=== PATIENT | female | born 1950 | race Caucasian/White ===

== ENCOUNTER 2017-03-12 19:21 | Emergency (ER) | payer MEDICARE, BC, OTHER ==
[~2017-03-12] VITALS: Ht 162.6 cm; Wt 78.6 kg
[~2017-03-12 19:21] MED LIST: ADVA115INH INH; ALPR0.5T3 PO; CALCCHW19 PO; MULTCAP11 PO; PERC5TAB PO; VENTAER INH; WELLTAB4 PO
[2017-03-12 19:22] VITALS: BP 173/83
[2017-03-12] MEDS ORDERED: POTA99TA PO (19:35)
[2017-03-12] MEDS ORDERED: LOSA25TA8 (19:35)
[2017-03-12 21:45] LABS: BASO % 0.6 % (0.0-1.0); EOS # 0.2 K/mm3 (0.0-0.50); EOS % 2.1 % (0.0-3.0); LARGE UNSTAINED CELL # 0.2 K/mm3 (0.0-0.4); LYMPH # 1.2 K/mm3 (1.5-4.5); LYMPH % 13.5 % (24.0-44.0); MEAN CORPUSCULAR HGB CONC 35.2 g/dl (32.0-36.5); MONO # 0.4 K/mm3 (0.0-0.8); MONO % 4.1 % (0.0-5.0); NEUTROPHILS % 77.7 % (36.0-66.0); PLATELET COUNT, AUTOMATED 253 k/mm3 (150-450); RED CELL DISTRIBUTION WIDTH 13.3 % (11.5-14.5)
[2017-03-12 21:53] LABS: INR 0.9
[2017-03-12 22:07] LABS: ANION GAP 7 MEQ/L (8-16); BLOOD UREA NITROGEN 24 MG/DL (7-18); CALCIUM LEVEL 9.2 MG/DL (8.8-10.2); CARBON DIOXIDE LEVEL 25 MEQ/L (21-32); CHLORIDE LEVEL 109 MEQ/L (98-107); CREATININE FOR GFR 0.79 MG/DL (0.55-1.02); FREE T4 0.92 NG/DL (0.76-1.46); GLOMERULAR FILTRATION RATE > 60.0 (>45); GLUCOSE, FASTING 97 MG/DL (80-110); POTASSIUM SERUM 3.9 MEQ/L (3.5-5.1); SODIUM LEVEL 141 MEQ/L (136-145)
--- NOTE | 2017-03-13 | REPUSA ---
MRI of the brain. Clinical history: vertigo. Technique: Multiecho multiplanar MRI images of the brain were obtained without administration of cont rast. Diffusion weighted images with ADC mapping was also obtained. Findings: The ventricles and sulci are symmetric bilaterally. The brain parenchyma demonstrates uniform and nor mal signal on all sequences. There is no midline shift, mass effect, or extra-axial fluid collection. The midline intracranial structures do not demonstrate any gross abnormalities. The cervical cranial junction is intact. The orbits are unremarkable. The visualized paranasal sinuses and mastoid air ce lls are clear. The osseous structures and superficial soft tissues are unremarkable. The vascular str uctures demonstrate appropriate flow voids. Impression: Normal MRI of the Brain.
[2017-03-13] MEDS ORDERED: MECL12.575 PO (00:06)
--- NOTE | 2017-03-13 08:33 | ECGEPIP ---
Stationary ECG Study [facility] - ED Test Date: 2017-03-12 Pat Name: COLE GUILLAUME Department: Room: - Gender: F Multimedia Author: nel : 1950 Requested By: NOY OHARA Order Number: [id number] Reading MD: Karla Garay Measurements Intervals [place] Rate: 66 P: 50 MI: 154 QRS: 0 QRSD: 89 T: 1 QT: 398 QTc: 419 Interpretive Statements SINUS RHYTHM POSSIBLE RIGHT VENTRICULAR CONDUCTION DELAY MODERATE VOLTAGE CRITERIA FOR LVH, CONSIDER NORMAL VARIANT ?PRIOR INFERIOR INFARCT Electronically Signed On 03-13-2017 8:32:42 EDT by Karla Garay
== END 2017-03-13 01:38 | disposition home or self-care (01) ==
LOC: M ED 19:21
DX: H81.49 Vertigo of central origin, unspecified ear (principal); Z79.899 Other long term (current) drug therapy; Z88.5 Allergy status to narcotic agent; Z88.0 Allergy status to penicillin; Z88.1 Allergy status to other antibiotic agents; Z87.891 Personal history of nicotine dependence; Z85.118 Personal history of other malignant neoplasm of bronchus and lung

== ENCOUNTER → 2018-04-02 | Outpatient (REF) | payer MEDICARE, OTHER ==
[2018-04-02 18:33] LABS: INR 0.87; PROTHROMBIN TIME 11.9 SECONDS (12.1-14.4)
[2018-04-02 18:34] LABS: PARTIAL THROMBOPLASTIN TIME 33.5 SECONDS (25.4-37.6)
[2018-04-02 18:37] LABS: PLATELET COUNT, AUTOMATED 287 10^3/uL (150-450)
== END ==
LOC: M LAB REF 17:02
DX: R91.1 Solitary pulmonary nodule (principal)
CPT/HCPCS: 85049

== ENCOUNTER → 2018-04-07 | Outpatient (CLI) | payer MEDICARE, BC, OTHER | LOC: M CARPUL 06:22 | DX: R91.1 Solitary pulmonary nodule (principal) | CPT/HCPCS: 94060 ==

== ENCOUNTER 2018-04-09 05:51 | Day surgery (SDC) | payer MEDICARE, BC, OTHER ==
[2018-04-09] MEDS ORDERED: LR 1,000 ML IV ×6 (06:00→09:00)
[2018-04-09] MEDS ORDERED: PROPOFOL 200 MG/20 ML VIAL As Ordered ×2 (07:16)
[2018-04-09] MEDS ORDERED: dexameTHASONE 4 MG/ML 1ML VIAL (J1100) As Ordered ×2 (07:16)
[2018-04-09] MEDS ORDERED: ROCURONIUM BROMIDE 50 MG/5 ML VIAL As Ordered ×2 (07:16)
[2018-04-09] MEDS ORDERED: fentaNYL 100 MCG/2 ML INJECTION (J3010) As Ordered ×2 (07:16)
[2018-04-09] MEDS ORDERED: LIDOCAINE 2% INJ 100 MG/5 ML SDV (FOR ANES.) As Ordered ×2 (07:16)
[2018-04-09] MEDS ORDERED: ONDANSETRON 4MG/2ML VIAL (J2405) As Ordered ×2 (07:16)
[2018-04-09] MEDS ORDERED: MIDAZOLAM INJ 2 MG/2 ML VIAL (J2250) As Ordered ×4 (07:17→07:21)
[2018-04-09] MEDS: CETACAINE SPRAY 5GM As Ordered ×2 (08:00)
[2018-04-09] MEDS ORDERED: ePHEDrine SULFATE 25 MG/5 ML(5MG/ML) SYRINGE As Ordered ×2 (08:07)
[2018-04-09] MEDS ORDERED: fentaNYL 100 MCG/2 ML INJECTION (J3010) IV ×2 (09:00)
[2018-04-09] MEDS ORDERED: ONDANSETRON 4MG/2ML VIAL (J2405) IV ×2 (09:00)
[2018-04-09] MEDS ORDERED: PERCOCET 5MG/325MG TAB PO ×2 (09:00)
[2018-04-09] MEDS: LIDOCAINE VISCOUS 2% SOLN 15ML UDC As Ordered ×2 (09:01)
[2018-04-09] MEDS: EPINEPHrine 1MG/10ML SYRINGE 1.5IN As Ordered ×2 (09:01)
[2018-04-09] MEDS: THROMBIN SOLN 5,000 UNITS VIAL As Ordered ×2 (09:02)
[2018-04-09] MEDS: LIDOCAINE 1% SDV INJ 30 ML VIAL As Ordered ×2 (09:02)
[2018-04-09] MEDS: LIDOCAINE 4% TOPICAL SOLN 50 ML BTL As Ordered ×2 (09:02)
== END 2018-04-09 10:10 | disposition home or self-care (01) ==
LOC: M SDC 05:51
DX: C34.12 Malignant neoplasm of upper lobe, left bronchus or lung (principal); J44.9 Chronic obstructive pulmonary disease, unspecified; Z90.2 Acquired absence of lung [part of]; Z88.0 Allergy status to penicillin; Z85.118 Personal history of other malignant neoplasm of bronchus and lung; F41.0 Panic disorder [episodic paroxysmal anxiety]; I10 Essential (primary) hypertension; Z87.891 Personal history of nicotine dependence; Z88.8 Allergy status to other drugs, medicaments and biological substances
CPT/HCPCS: 31629

== ENCOUNTER → 2018-05-04 | Outpatient (CLI) | payer MEDICARE, BC, OTHER ==
[~2018-05-04] MED LIST changes: -ADVA115INH INH; -ALPR0.5T3 PO; -CALCCHW19 PO; -MULTCAP11 PO; -PERC5TAB PO; +PROHANCE 279.3MG/ML 15ML VIAL (A9576) As Ordered; -VENTAER INH; -WELLTAB4 PO
== END ==
LOC: M RAD 09:12
DX: C34.92 Malignant neoplasm of unspecified part of left bronchus or lung (principal); I67.82 Cerebral ischemia
CPT/HCPCS: A9576

== ENCOUNTER → 2018-05-08 | Outpatient (CLI) | payer MEDICARE, BC, OTHER | LOC: M ONCR 08:34 | DX: C7A.090 Malignant carcinoid tumor of the bronchus and lung (principal) | CPT/HCPCS: G0463 ==

== ENCOUNTER → 2018-05-25 | Outpatient (CLI) | payer MEDICARE, BC, OTHER | LOC: M RAD 08:35 | DX: C7A.8 Other malignant neuroendocrine tumors (principal) | CPT/HCPCS: 78804 ==

== ENCOUNTER → 2018-07-07 | Outpatient (CLI) | payer MEDICARE, BC, OTHER ==
[~2018-07-07] MED LIST changes: +ADVA115A INH; +ADVA115INH INH; +ALPR0.5T3 PO; +ALPRTAB4 PO; +AZIT500T2 PO; +BUPR150T3 PO; +CALCCHW19 PO; +CALCTAB89 PO; +CETI10TA PO; +D32000CA PO; +LOSA25TA14 PO; +MECL12.575 PO; +MONT10TA2 PO; +MULTCAP PO; +MULTCAP11 PO; +ONDA-195 PO; +ONDA8TAB8 PO; +PERC5TAB PO; +POTA99TA PO; +PROC10TA4 PO; -PROHANCE 279.3MG/ML 15ML VIAL (A9576) As Ordered; +VENTAER INH; +WELLTAB4 PO; +ZOFR8TAB22 PO
--- NOTE | 2018-07-08 19:42 | REP ---
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 Comparisons: Comparison PET-CT study April 30, 2018. TECHNIQUE: 46 minutes following the intravenous injection of a 9.6 mCi dose of F-18 FDG, three-dimensional PET scintigraphy is acquired from the skull base to the proximal thighs. Triplanar noncontrast CT scanning is acquired through the same anatomic range for attenuation correction, and image registration with scan parameters optimized to minimize radiation exposure to the patient. PET scintigraphy and CT datasets were fused and displayed on a workstation with multiplanar and projection display capability. PET/CT Findings: There is diffuse bone marrow uptake throughout the axial skeleton consistent with rebound marrow post chemo therapy. The uptake is not focal. There is some residual hypermetabolic uptake in the lingular nodule seen at the left lung base. This appears decreased in avidity and decreased somewhat in size from 14 mm on the April 30, 2018 prior PET-CT to 12 mm today. Maximum standard uptake value today is 4.7. The previously noted AP window region mediastinal lymph node focus is resolved. There is a subtle zone of parenchymal FDG uptake in the left upper lobe suprahilar region with maximum standard uptake value 2.2. No nodule is seen here and the significance of this is uncertain. Head and neck soft tissues show no abnormal maryse uptake. In the abdomen and pelvis, there is no abnormal hypermetabolic uptake in the adrenal. Gallstones are noted. Normal hepatic uptake is seen. There is a solid mass in the lower pole of the left kidney again noted measuring 4.7 x 5.0 cm in transverse dimension. This appears to be unchanged from the PET-CT study dated April 30, 2018. This shows slightly heterogeneous hypermetabolic uptake with maximum standard uptake value 4.4. No other renal mass lesion is seen. This may be a primary renal cell carcinoma or conceivably a metastatic focus although it is much less hypermetabolic than the primary lung focus. Study is otherwise unremarkable. Impression: 1. Improvement noted in the intrathoracic disease as above. 2. Reactive rebound marrow changes. 3. Mildly hypermetabolic 5 cm mass lower pole left kidney, uncertain significance, unchanged from April 30, 2018. This may be a primary or secondary renal malignancy. Electronically Signed by Salo Potter MD 07/08/2018 07:49 P
== END ==
LOC: M PLARAD 13:41
PROVIDERS: ATTEND Internal Medicine Hematology & Oncology
DX: C34.32 Malignant neoplasm of lower lobe, left bronchus or lung (principal); Z92.21 Personal history of antineoplastic chemotherapy; K80.20 Calculus of gallbladder without cholecystitis without obstruction; N28.89 Other specified disorders of kidney and ureter
CPT/HCPCS: 78815; A9552

== ENCOUNTER → 2018-07-24 | Outpatient (CLI) | payer MEDICARE, BC, OTHER ==
--- NOTE | 2018-07-24 13:37 | REP ---
RENAL ULTRASOUND: Real-time sonographic evaluation of the kidneys performed. Kidneys are normal in size and echotexture, right kidney measuring 10.4 x 5.6 x 5.2 cm and left kidney 11.3 x 5.5 x 6.5 cm. There is no hydronephrosis bilaterally. Solid mass is seen in the lower pole of the left kidney 6.1 x 5.5 x 6.0 cm. This corresponds with the finding on the PET/CT of 07/07/2018. Incidental note is made of multiple gallstones in the gallbladder. Urinary bladder is not well distended and not well evaluated. IMPRESSION: Solid mass lower pole left kidney measuring 6.1 cm in maximum diameter. Incidental note made of multiple gallstones in the gallbladder. Electronically Signed by Jarrett Fields MD 07/24/2018 01:57 P
== END ==
LOC: M RAD 12:02
PROVIDERS: ATTEND Internal Medicine Hematology & Oncology
DX: D41.02 Neoplasm of uncertain behavior of left kidney (principal); K80.80 Other cholelithiasis without obstruction

== ENCOUNTER → 2018-10-21 | Outpatient (CLI) | payer MEDICARE, BC, OTHER ==
[~2018-10-21] MED LIST changes: +VOLT1GEL15 TD
--- NOTE | 2018-10-23 09:41 | REP ---
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 Status post chemotherapy. Comparisons: Comparison PET-CT a July 07, 2018, and April 30, 2018 . TECHNIQUE: 55 minutes following the intravenous injection of a 8.30 mCi dose of F-18 FDG, three-dimensional PET scintigraphy is acquired from the skull base to the proximal thighs. Triplanar noncontrast CT scanning is acquired through the same anatomic range for attenuation correction, and image registration with scan parameters optimized to minimize radiation exposure to the patient. PET scintigraphy and CT datasets were fused and displayed on a workstation with multiplanar and projection display capability. PET/CT Findings: The previously noted lingular nodule has increased its avidity from 4.7 SUV on July 07, 2018 to 13.6 today. It measures 13 mm in greatest diameter. No other abnormal pulmonary parenchymal hypermetabolic uptake is seen. There is a focus of mildly hypermetabolic uptake in the left inferior hilus with maximum standard uptake value 4.22. No abnormal mediastinal uptake is seen. In the abdomen and pelvis, the previously noted mildly hypermetabolic left renal mass is again seen with dimensions of 5.2 x 4.9 cm today, previously 5.0 x 4.7 cm. Maximum standard uptake value within this left renal mass is 5.00, previously 4.4. No other abnormal hypermetabolic uptake is seen in the abdomen or pelvis. No abnormal adrenal uptake is seen. The previously noted marrow uptake pattern has resolved. Gallstones are again noted as an incidental finding. Impression: Interval increase in the avidity of the lingular nodule. Subtle left hilar uptake. Left renal mass persists, perhaps slightly larger, showing low level hypermetabolic uptake. Electronically Signed by Salo Potter MD 10/23/2018 10:40 A
== END ==
LOC: M PLARAD 07:29
PROVIDERS: ATTEND Internal Medicine Hematology & Oncology
DX: C34.12 Malignant neoplasm of upper lobe, left bronchus or lung (principal)
CPT/HCPCS: 78815; A9552

== ENCOUNTER → 2018-12-17 | Outpatient (CLI) | payer MEDICARE, BC, OTHER ==
[~2018-12-17] MED LIST changes: +LIDOCAINE 1% MDV 20ML VIAL As Ordered ONE; +TYLE650T35 PO
--- NOTE | 2018-12-17 13:06 | REP ---
Chest x-ray: Single view. History: Post biopsy assessment. The patient is status post CT guided needle biopsy left upper lobe lung nodule. A tiny pneumothorax is observed on CT imaging obtained during the biopsy. Comparison study: April 09, 2019. Findings: There is no visible pneumothorax on PA chest radiograph. Oxygen delivery tubing is seen. The nodular density which was the target of the biopsy is seen. There are post thoracotomy changes on the left. Impression: No pneumothorax or other complication visible. Electronically Signed by Salo Potter MD 12/17/2018 02:24 P
--- NOTE | 2018-12-17 14:40 | REP ---
CHEST X-RAY: Single view. 02:15 p.m. film. HISTORY: Tiny post biopsy pneumothorax followup. Comparison radiograph is from 12:21 p.m. on the same date. FINDINGS: There is no visible pneumothorax. Post thoracotomy changes on the left and nodular density on the left again seen unchanged. IMPRESSION: No pneumothorax seen. Electronically Signed by Salo Potter MD 12/17/2018 03:45 P
--- NOTE | 2018-12-17 16:53 | REP ---
CT-guided left upper lobe lung biopsy The procedure is performed by JOLIE Arnold, under the personal supervision of Dr. Potter. The patient has a history of a lingular nodule in the left lung with increase uptake on a PET CT dated 10/21/2018. The risks and benefits of the procedure were explained to the patient and informed consent was obtained both orally and written. Directly prior to the start of the procedure, a formal timeout was done in the exam room. The left upper lung nodule was localized using CT guidance. Skin was prepped and draped in the usual sterile fashion. 6 ml of 1% lidocaine was used as a local anesthetic. Using CT guidance a 19/20 gauge coaxial needle biopsy system was inserted and advanced into the nodule. 4 core biopsy samples were obtained and sent to the lab. CT images obtained directly after the biopsy show evidence of a small pneumothorax. After the appropriate amount of monitored convalescence, and a series of chest x-rays the pneumothorax did not progress, and in the patient was discharged from the department. Reviewed by JOLIE Still 12/17/2018 03:48 P Electronically Signed by Salo Potter MD 12/17/2018 04:44 P
== END ==
LOC: M RADPRO 09:56
PROVIDERS: ATTEND Internal Medicine Hematology & Oncology
DX: C34.32 Malignant neoplasm of lower lobe, left bronchus or lung (principal)

== ENCOUNTER → 2019-06-04 | Outpatient (CLI) | payer MEDICARE, BC, OTHER ==
[~2019-06-04] MED LIST changes: -AZIT500T2 PO; +AZIT500T5 PO; +LIDO2.5C15 TOP; +MIDAZOLAM INJ 2 MG/2 ML VIAL (J2250) As Ordered ONE; +VANCOMYCIN HCL 500 MG/10 ML VIAL (J3370) As Ordered ONE; +diphenhydrAMINE INJ 50MG/ML VIAL (J1200) As Ordered ONE; +fentaNYL 100 MCG/2 ML INJECTION (J3010) As Ordered ONE
--- NOTE | 2019-06-04 12:37 | REP ---
IR Ultrasound and fluoroscopy-guided port placement. IR Ultrasound of the neck. IR Moderate sedation. Clinical information: Lung cancer. Physician: Dr. Arce. Procedure: The patient was advised of the benefits, risks, and alternatives of the procedure and informed consent was obtained. A time-out was performed with verification of the patient's name, MRN, site of procedure and type of procedure to be performed. The patient was positioned in the supine position on the angiographic table. The site was prepped and draped in the usual sterile fashion. Moderate sedation was performed by the physician including the presence of an independent trained observer who assisted and monitored the patient's level of consciousness and physiologic status. Following the administration of versed and fentanyl, the physician spent 45 minutes of continuous face to face time with the patient. Ultrasound of the neck reveals a patent and compressible right internal jugular vein. A healthcare customer service radiograph reveals no gross abnormality. The neck and anterior chest wall were anesthetized with lidocaine. The right internal jugular vein was accessed using a microintroducer needle under ultrasound guidance, via a lateral approach. An 018 wire was advanced into the superior vena cava, the needle was removed and a microsheath was placed. An Amplatz wire was then passed into the inferior vena cava. An incision at the internal jugular vein access site and anterior chest wall were made using a scalpel. An incision was made at the anterior chest wall. A small pocket was created using a combination of blunt and sharp dissection. A tunneling device was then used to pass the catheter from the pocket to the neck puncture site. An [employer]-Th[employer] smart power port was then positioned in the pocket. The catheter was then measured and cut. The introducer sheath was exchanged for a peel-away sheath. The catheter was passed through the peel-away sheath into the internal jugular vein and the peel-away sheath was removed. The port tip was positioned at the cavo atrial junction. The port was then accessed with a Cheng needle. The port flushes and aspirates well. The puncture site in the neck was closed. The chest wall incision was then closed with 2-0 Vicryl and 4-0 Monocryl. Glue and Steri-Strips were applied. A sterile dressing was then applied. The patient tolerated the procedure well and was returned to the PRU in stable condition. Estimated blood loss: <5 ml. Complications: None. Conclusion: 1. Successful placement of an [employer]-Thai [employer] smart power port via the right internal jugular vein. The port is ready for immediate use. 2. Patient to follow up in IR clinic in 2 weeks. Thank you for this referral. Electronically Signed by Carmenza Arce MD 06/04/2019 12:36 P
[2019-06-04 13:30] VITALS: BP 124/76
== END ==
LOC: M IRPRO 09:16
PROVIDERS: ATTEND Internal Medicine Hematology & Oncology
DX: C34.90 Malignant neoplasm of unspecified part of unspecified bronchus or lung (principal)
CPT/HCPCS: 36561; 76937; C1769; C1788; C1894; J1200; J2250; J3010; J3370

== ENCOUNTER → 2019-06-29 | Outpatient (POV) | payer MEDICARE, BC, OTHER ==
[~2019-06-29] MED LIST changes: +D32000TA PO; -LIDOCAINE 1% MDV 20ML VIAL As Ordered ONE; -MIDAZOLAM INJ 2 MG/2 ML VIAL (J2250) As Ordered ONE; +ONDA8TAB7 PO; -VANCOMYCIN HCL 500 MG/10 ML VIAL (J3370) As Ordered ONE; -diphenhydrAMINE INJ 50MG/ML VIAL (J1200) As Ordered ONE; -fentaNYL 100 MCG/2 ML INJECTION (J3010) As Ordered ONE
--- NOTE | 2019-06-30 16:33 | IRPN ---
[facility] IR Progress Note IR Progress Note DATE: Jun 29, 2019 No show Allergies Coded Allergies: codeine (Verified Allergy, Severe, can't breathe, 09/22/18) Penicillins (Verified Allergy, Intermediate, RASH, 09/22/18) ciprofloxacin (Verified Adverse Reaction, Mild, PT NOT SURE. STATES DID NOT WORK YEARS AGO., 09/22/18) DANICA MURILLO MD Jun 30, 2019 16:33
== END ==
LOC: M IRPOV 07:41
PROVIDERS: ATTEND Radiology Diagnostic Radiology
DX: Z45.2 Encounter for adjustment and management of vascular access device (principal)

== ENCOUNTER 2019-12-20 09:49 | Outpatient (RCR) | payer MEDICARE, BC, OTHER ==
[~2019-12-20 09:49] MED LIST changes: -MECL12.575 PO; +MECL12.589 PO; -MONT10TA2 PO; +MONT10TA4 PO; +ONDA8TAB10 PO; -ONDA8TAB7 PO
== END 2019-12-21 ==
LOC: M PT 09:49
PROVIDERS: ATTEND Internal Medicine
DX: Z51.89 Encounter for other specified aftercare (principal); R26.89 Other abnormalities of gait and mobility

== ENCOUNTER 2020-01-20 10:45 | Outpatient (RCR) | payer MEDICARE, BC, OTHER ==
[~2020-01-20 10:45] MED LIST changes: +ACET650T61 PO; -TYLE650T35 PO
== END 2020-01-21 ==
LOC: M PT 10:45 → M OT 01-24 10:45 → M PT 01-28 10:00 → M OT 01-28 10:45 → M PT 01-31 10:00 → M OT 01-31 10:45 → M PT 02-02 10:00 → M OT 02-02 10:45 → M PT 02-07 10:00 → M OT 02-07 10:45 → M PT 02-09 10:00 → M OT 02-09 10:45
PROVIDERS: ATTEND Internal Medicine
DX: R26.89 Other abnormalities of gait and mobility (principal)

== ENCOUNTER 2020-02-16 10:00 | Outpatient (RCR) | payer MEDICARE, BC, OTHER | END 2020-02-21 | LOC: M PT 10:00 | PROVIDERS: ATTEND Internal Medicine | DX: R26.89 Other abnormalities of gait and mobility (principal) ==

== ENCOUNTER 2020-02-22 10:45 | Outpatient (RCR) | payer MEDICARE, BC, OTHER ==
[2020-03-11] MEDS ORDERED: DECA4TAB PO (11:50)
[2020-03-11] MEDS ORDERED: MULTCAP PO (11:52)
[2020-03-11] MEDS ORDERED: KEPP10002 PO (11:52)
[2020-03-11] MEDS ORDERED: PANT40TA29 PO (11:53)
[2020-03-11] MEDS ORDERED: SULF1TAB93 PO (11:55)
[2020-03-11] MEDS ORDERED: calcium (11:56)
[2020-03-11] MEDS ORDERED: D3 S20002 PO (12:19)
[2020-03-11] MEDS ORDERED: LEVE500T5 PO (13:00)
[2020-03-11] MEDS ORDERED: BUPR1TAB52 PO (13:00)
[2020-03-11] MEDS ORDERED: OYST250T20 PO (13:00)
[2020-03-11] MEDS ORDERED: POTA10CA32 PO (13:02)
[2020-03-11] MEDS ORDERED: FURO20TA2 PO (13:02)
== END 2020-03-22 ==
LOC: M OT 10:45
PROVIDERS: ATTEND Internal Medicine
DX: R26.89 Other abnormalities of gait and mobility (principal)

== ENCOUNTER 2020-03-11 11:31 | Inpatient (IN) | payer MEDICARE, BC, OTHER ==
[~2020-03-11] VITALS: Ht 162.6 cm; Wt 70.1 kg
[2020-03-11] MEDS ORDERED: DECA4TAB PO (11:50)
[2020-03-11] MEDS ORDERED: MULTCAP PO (11:52)
[2020-03-11] MEDS ORDERED: KEPP10002 PO (11:52)
[2020-03-11] MEDS ORDERED: PANT40TA29 PO (11:53)
[2020-03-11] MEDS ORDERED: SULF1TAB93 PO (11:55)
[2020-03-11] MEDS ORDERED: calcium (11:56)
[2020-03-11] MEDS ORDERED: D3 S20002 PO (12:19)
[2020-03-11 12:25] LABS: VENOUS BASE EXCESS -6.5 (-2.0-2.0); VENOUS HCO3 17.4 MEQ/L (23.0-27.0); VENOUS O2 SATURATION 97.6 % (60.0-80.0); VENOUS PARTIAL PRESSURE CO2 28.8 mmHg (38.0-50.0); VENOUS PARTIAL PRESSURE O2 109.6 mmHg (30.0-50.0); VENOUS PH 7.398 UNITS (7.330-7.430); VENOUS STANDARD HCO3 19.1 MEQ/L; VENOUS TOTAL CO2 18.2 MEQ/L (24.0-28.0)
--- NOTE | 2020-03-11 12:30 | REPVR ---
PROCEDURE INFORMATION: Exam: XR Chest, 1 View Exam date and time: 03/11/2020 11:51 AM Age: 69 years old Clinical indication: Other: Syncope; Additional info: Syncope/near-syncope TECHNIQUE: Imaging protocol: XR of the chest Views: 1 view. COMPARISON: CA Chest, 1 view 04/09/2018 9:17 AM FINDINGS: Tubes, catheters and devices: There is a port in place from a right IJ approach. Lungs: There appears to have been a left pneumonectomy. The right lung is clear. Pleural space: No pleural effusion. No pneumothorax. Heart/Mediastinum: There is mediastinal shift to the left. Bones/joints: Unremarkable. IMPRESSION: 1. Findings consistent with a left pneumonectomy. 2. No consolidation right lung. Electronically signed by: Rex Triplett On 03/11/2020 12:30:09 PM
[2020-03-11 12:34] LABS: HEMATOCRIT 27.7 % (36.0-47.0); HEMOGLOBIN 9.1 g/dl (12.0-15.5); MEAN CORPUSCULAR HGB CONC 32.9 g/dl (32.0-36.5); MEAN CORPUSCULAR VOLUME 100.4 fl (80.0-96.0); PLATELET COUNT, AUTOMATED 427 10^3/uL (150-450); RED BLOOD COUNT 2.76 10^6/uL (4.00-5.40)
--- NOTE | 2020-03-11 12:34 | REPVR ---
PROCEDURE INFORMATION: Exam: US Duplex Left Lower Extremity Veins, Limited Exam date and time: 03/11/2020 12:26 PM Age: 69 years old Clinical indication: Swelling (edema) of limb; Lower extremity, left; Additional info: Swelling h/o cancer TECHNIQUE: Imaging protocol: Real-time Duplex ultrasound of the Left Lower Extremity with 2-D burch scale, color Doppler flow and spectral waveform analysis with image documentation. Limited exam focused on the left lower extremity veins. COMPARISON: No relevant prior studies available. FINDINGS: Left deep veins: Unremarkable. The common femoral, femoral, proximal profunda femoral and popliteal veins are patent without thrombus. Normal Doppler waveforms. Normal compressibility and/or augmentation response. Left superficial veins: Unremarkable. Saphenofemoral junction is patent without thrombus. Soft tissues: There is a 4.5 x 5.6 x 2.1 cm collection in the left popliteal fossa consistent with a Turner's cyst. IMPRESSION: 1. No left lower extremity DVT. 2. Left Turner's cyst. Electronically signed by: Rex Triplett On 03/11/2020 12:33:43 PM
[2020-03-11 12:41] LABS: WHITE BLOOD COUNT 112.9 10^3/uL (4.0-10.0)
--- NOTE | 2020-03-11 12:43 | REPVR ---
PROCEDURE INFORMATION: Exam: CT Head Without Contrast Exam date and time: 03/11/2020 12:29 PM Age: 69 years old Clinical indication: Syncope and collapse TECHNIQUE: Imaging protocol: Computed tomography of the head without contrast. Radiation optimization: All CT scans at this facility use at least one of these dose optimization techniques: automated exposure control; mA and/or kV adjustment per patient size (includes targeted exams where dose is matched to clinical indication); or iterative reconstruction. COMPARISON: No relevant prior studies available. FINDINGS: Brain: There are regions of vasogenic edema in the right frontal lobe and the high left frontal lobe. Ventricles: The ventricles and CSF spaces are normal in size for age. Bones/joints: There are degenerative changes of the temporomandibular joints. Paranasal sinuses: Visualized sinuses are unremarkable. No fluid levels. Mastoid air cells: Visualized mastoid air cells are well aerated. Soft tissues: Unremarkable. IMPRESSION: There are regions of vasogenic edema most consistent with metastatic disease. A follow-up study with IV contrast or an MRI is recommended. Electronically signed by: Rex Triplett On 03/11/2020 12:43:14 PM
[2020-03-11 12:49] LABS: INR 0.97; PROTHROMBIN TIME 13.1 SECONDS (12.5-14.3)
[2020-03-11] MEDS ORDERED: LEVE500T5 PO (13:00)
[2020-03-11] MEDS ORDERED: BUPR1TAB52 PO (13:00)
[2020-03-11] MEDS ORDERED: OYST250T20 PO (13:00)
[2020-03-11] MEDS ORDERED: NS 1,000 ML IV ONE ×2 (13:00→14:30)
[2020-03-11] MEDS ORDERED: FURO20TA2 PO (13:02)
[2020-03-11] MEDS ORDERED: POTA10CA32 PO (13:02)
[2020-03-11 13:06] LABS: ALBUMIN 3.4 GM/DL (3.2-5.2); ALT/SGPT 39 U/L (12-78); BILIRUBIN,DIRECT 0.1 MG/DL (0.0-0.2); BILIRUBIN,TOTAL 0.4 MG/DL (0.2-1.0); BLOOD UREA NITROGEN 23 MG/DL (7-18); CALCIUM LEVEL 9.1 MG/DL (8.8-10.2); CARBON DIOXIDE LEVEL 18 MEQ/L (21-32); CHLORIDE LEVEL 102 MEQ/L (98-107); CK-MB VALUE MASS 1.2 NG/ML (<3.6); CPK CREATINE PHOSPHOKINASE 33 U/L (26-192); CREATININE FOR GFR 0.74 MG/DL (0.55-1.30); FREE T4 0.73 NG/DL (0.76-1.46); GLOMERULAR FILTRATION RATE > 60.0 (>39); GLUCOSE, FASTING 189 MG/DL (70-100); MAGNESIUM LEVEL 2.1 MG/DL (1.8-2.4); MB/CK RELATIVE INDEX 3.64 (< OR =4); POTASSIUM SERUM 3.5 MEQ/L (3.5-5.1); SODIUM LEVEL 135 MEQ/L (136-145); THYROID STIMULATING HORMONE 0.178 uIU/ML (0.358-3.740); TOTAL PROTEIN 6.3 GM/DL (6.4-8.2); TROPONIN I < 0.02 NG/ML (< 0.10)
[2020-03-11 13:07] LABS: LYMPHOCYTES 1 % (16-44)
[2020-03-11 13:10] LABS: ANISOCYTOSIS 1+; METAMYELOCYTES 1 % (0-0); NEUTROPHILS 93 % (28-66); POIKILOCYTOSIS 1+; POLYCHROMASIA 1+
[2020-03-11 13:11] LABS: PLATELET ESTIMATE INCREASED (NORMAL)
[2020-03-11 13:21] LABS: MONOCYTES 0 % (0-5)
[2020-03-11 15:19] LABS: C REACTIVE PROTEIN QUANTITATIV 0.36 MG/DL (0.00-0.30)
[2020-03-11] MEDS ORDERED: ACETAMINOPHEN 650MG ER TAB (TYLENOL ARTHRITIS) PO PRN (15:30)
[2020-03-11 15:56] LABS: ERYTHROCYTE SEDIMENTATION RATE 11 mm/hr (0-30)
[2020-03-11 17:24] VITALS: BP 149/86
[2020-03-11] MEDS: NS 1,000 ML IV SCH (18:00)
[2020-03-11] MEDS: ADVAIR HFA 115/21MCG INHALER INH SCH (19:49)
[2020-03-11] MEDS: levETIRAcetam 250MG TABLET (KEPPRA) PO SCH (21:28)
[2020-03-11] MEDS ORDERED: CEPACOL LOZENGE PO PRN (21:30)
[2020-03-11 22:00] VITALS: BP 124/71
[2020-03-12] MEDS: NS 1,000 ML IV SCH (00:05)
[2020-03-12 06:00] VITALS: BP 144/79
[2020-03-12] MEDS: ADVAIR HFA 115/21MCG INHALER INH SCH (07:31)
[2020-03-12 08:47] LABS: HEMATOCRIT 25.3 % (36.0-47.0); HEMOGLOBIN 8.3 g/dl (12.0-15.5); MEAN CORPUSCULAR HEMOGLOBIN 33.2 pg (27.0-33.0); MEAN CORPUSCULAR HGB CONC 32.8 g/dl (32.0-36.5); MEAN CORPUSCULAR VOLUME 101.2 fl (80.0-96.0); PLATELET COUNT, AUTOMATED 335 10^3/uL (150-450)
[2020-03-12] MEDS ORDERED: buPROPion (WELLBUTRIN SR) 100 MG SR TAB PO SCH (09:00)
[2020-03-12] MEDS ORDERED: PANTOPRAZOLE 40MG TAB (PROTONIX) PO SCH (09:00)
[2020-03-12] MEDS ORDERED: CETIRIZINE (ZyrTEC) 10 MG TAB PO SCH (09:00)
[2020-03-12] MEDS ORDERED: MULTIVITAMINS/MINERALS THERAP 1 TAB PO SCH (09:00)
[2020-03-12] MEDS ORDERED: MONTELUKAST 10 MG TAB PO SCH (09:00)
[2020-03-12 09:02] LABS: WHITE BLOOD COUNT 70.6 10^3/uL (4.0-10.0)
[2020-03-12 09:05] LABS: BLOOD UREA NITROGEN 20 MG/DL (7-18); CALCIUM LEVEL 8.5 MG/DL (8.8-10.2); CARBON DIOXIDE LEVEL 23 MEQ/L (21-32); CHLORIDE LEVEL 110 MEQ/L (98-107); CREATININE FOR GFR 0.54 MG/DL (0.55-1.30); GLOMERULAR FILTRATION RATE > 60.0 (>39); GLUCOSE, FASTING 83 MG/DL (70-100); POTASSIUM SERUM 3.2 MEQ/L (3.5-5.1); SODIUM LEVEL 140 MEQ/L (136-145)
[2020-03-12] MEDS: levETIRAcetam 250MG TABLET (KEPPRA) PO SCH (09:42)
[2020-03-12 09:43] LABS: ANISOCYTOSIS 1+; LYMPHOCYTES 3 % (16-44); MONOCYTES 1 % (0-5); NEUTROPHILS 90 % (28-66); OVALOCYTES 1+; PLATELET ESTIMATE NORMAL (NORMAL); POIKILOCYTOSIS 1+
[2020-03-12] MEDS ORDERED: ACETAMINOPHEN 500 MG TAB PO ONE (10:45)
[2020-03-12] MEDS ORDERED: POTASSIUM CHLORIDE 10 MEQ SR TABLET PO SCH (11:00)
[2020-03-12] MEDS ORDERED: PROHANCE 279.3MG/ML 15ML VIAL As Ordered ONE (12:16)
--- NOTE | 2020-03-12 12:52 | IPNPDOC ---
Date Seen The patient was seen on 03/12/20. Progress Note ECHOCARDIOGRAM 03/12/20 (VERBAL REPORT FROM DR. MESA-PRELIMINARY) EF 65-70%TRACEAI, NORMAL CVP, BORDERLINE PULM HTN, NOTHING TO EXPLAIN SYNCOPE. VS, I&O, 24H, Fishbone Vital Signs/I&O Vital Signs Date Time Temp Pulse Resp B/P (MAP) Pulse Ox O2 Delivery O2 Flow Rate FiO2 03/12/20 06:00 98.3 76 16 144/79 (100) 98 Room Air I&O- Last 24 Hours up to 6 AM 03/12/20 05:59 Intake Total 2850 ml Output Total 1200 ml Balance 1650 ml Laboratory Data 24H LABS Laboratory Tests 2 03/11/20 16:34: Lactic Acid Followup at 4 Hours 2.2*H 03/11/20 17:12: Urine Color STRAW, Urine Appearance CLEAR, Urine pH 7.0, Urine Specific [place] 1.010, Urine Protein NEGATIVE, Urine Glucose (UA) NEGATIVE, Urine Ketones NEGATIVE, Urine Blood NEGATIVE, Urine Nitrite NEGATIVE, Urine Bilirubin NEGATIVE, Urine Urobilinogen 0.2, Urine Leukocyte Esterase NEGATIVE, Urine WBC (Auto) 1, Urine RBC (Auto) 3, Urine Hyaline Casts (Auto) 0, Urine Bacteria (Auto) NEGATIVE, Urine Squamous Epithelial Cells 0, Urine Sperm (Auto) 03/12/20 08:20: Immature Granulocyte % (Auto) , Neutrophils (%) (Auto) , Nucleated Red Blood Cells % (auto) 0.0, Neutrophils 90H, Band Neutrophils 6, Lymphocytes (Manual) 3L, Monocytes (Manual) 1, Poikilocytosis 1+, Anisocytosis 1+, Macrocytosis 1+, Ovalocytes 1+, Platelet Estimate NORMAL, Anion Gap 7L, Glomerular Filtration Rate > 60.0, Calcium Level 8.5L CBC/BMP Laboratory Tests 03/12/20 08:20 Microbiology Microbiology 03/11/20 Blood Culture, Received Pending 03/11/20 Blood Culture, Received Pending SALAZAR SERNA MD Mar 12, 2020 12:52
--- NOTE | 2020-03-12 13:15 | REPVR ---
PROCEDURE INFORMATION: Exam: MR Head Without and With Contrast Exam date and time: 03/12/2020 12:45 PM Age: 69 years old Clinical indication: Syncope and collapse; Patient HX: HX breast CA, recent episodes of syncope and passing out. ; Additional info: Syncope brain mets TECHNIQUE: Imaging protocol: MR of the head without and with intravenous contrast. Contrast material: PROHANCE; Contrast volume: 13 ml; Contrast route: INTRAVENOUS (IV); COMPARISON: 1. MRI-Brain W/O FOLL BY WITH 05/04/2018 9:[address] Head without contrast 03/11/2020 12:25:21 PM FINDINGS: Brain: Examination reveals multiple rounded nodular and ring-enhancing lesions scattered in bilateral cerebral hemispheres with the largest measuring 1.5 cm in the right frontal lobe. A small 2 mm enhancing lesion is seen in the central gwendolyn just to the left of the midline. A 4 mm lesion is noted in the left middle cerebellar peduncle. There is extensive vasogenic edema noted in the right frontal and bilateral parietal lobes. These are consistent with intracranial metastasis in this patient with known history of breast carcinoma. No acute infarction, acute hemorrhage or midline shift is seen. There is no abnormal diffusion weighted signal intensity to suggest an acute ischemic event. There is mild diffuse cerebral atrophy present, consistent with this patient's age. Ventricles: The ventricular system demonstrates mild diffuse compensatory enlargement. Bones/joints: Unremarkable. Sinuses: Normal as visualized. No acute sinusitis. Mastoid air cells: Normal as visualized. No mastoid effusion. Orbits: Unremarkable. Soft tissues: Unremarkable. IMPRESSION: 1. Examination reveals multiple rounded nodular and ring-enhancing lesions scattered in bilateral cerebral hemispheres with the largest measuring 1.5 cm in the right frontal lobe. A small 2 mm enhancing lesion is seen in the central gwendolyn just to the left of the midline. A 4 mm lesion is noted in the left middle cerebellar peduncle. There is extensive vasogenic edema noted in the right frontal and bilateral parietal lobes. These are consistent with intracranial metastasis in this patient with known history of breast carcinoma. 2. No acute infarction, acute hemorrhage or midline shift is seen. Electronically signed by: Yazan Alvarado On 03/12/2020 13:15:12 PM
--- NOTE | 2020-03-12 13:55 | ECGEPIP ---
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
[2020-03-12 14:00] VITALS: BP 140/81
[2020-03-12] MEDS ORDERED: SODIUM CHLORIDE 0.9% INJ 10 ML SYR IV PRN (16:00)
[2020-03-13] MEDS ORDERED: BACTRIM 160MG/800MG DS TAB PO SCH (09:00)
[2020-03-13] MEDS ORDERED: SODIUM CHLORIDE 0.9% INJ 10 ML SYR IV SCH (09:00)
--- NOTE | 2020-03-15 07:39 | ECHO ---
DATE OF PROCEDURE: 03/12/2020 Height: 160 cm Weight: 68 kg. REFERRING PHYSICIAN: Dr. Torres INDICATION: Syncope MEASUREMENTS: IVS 1.1 LV 4.0 LVPW 1.2 LA 3.2 Aorta 2.9 RV 3.2 IVC 1.6 Mitral E wave velocity 106, A wave 107 E prime septal 7.8 E prime lateral 6.2 FINDINGS: The study is of acceptable technical quality. The patient is in sinus rhythm. Left ventricle is normal size and preserved contractility. Estimated left ventricular ejection fraction (LVEF) 65 to 70%. Borderline left ventricular hypertrophy (LVH) is noted. Right ventricle does not appear dilated. Both atria appear grossly normal. Aortic valve is sclerotic, but has cusps and preserved mobility. Mitral, tricuspid and pulmonic valves appear normal. No pericardial effusion is present. Inferior vena cava is of normal size and appropriately collapses with inspiration indicative of normal central venous pressure (CVP). Aortic root, aortic arch and visualized segment of abdominal aorta all appear normal. Doppler interrogation reveals no aortic stenosis and mild insufficiency. There is also trace mitral and tricuspid insufficiency. Calculated pulmonary artery pressure is low 30s corresponding to borderline pulmonary hypertension. Pulmonic valve is functionally competent. Mitral inflow pattern and tissue Doppler imaging of mitral annulus reveal likely grade 1 diastolic dysfunction. CONCLUSIONS: 1. Study is of good technical quality. The patient is in sinus rhythm. 2. Normal LV size with borderline left ventricular hypertrophy (LVH) and preserved LV systolic function, grade 1 diastolic dysfunction. 3. Aortic sclerosis with no stenosis and mild insufficiency. 4. Trace mitral and tricuspid insufficiency. 5. Normal central venous pressure and borderline pulmonary hypertension. COMMENTS: No findings to explain syncopal event. Results were communicated to Dr. Torres. F F THOMPSON HOSPITALIsaías
--- NOTE | 2020-03-21 15:19 | HPE ---
DATE OF ADMISSION: 03/11/2020 CHIEF COMPLAINT: Syncope. HISTORY OF PRESENT ILLNESS: A 69-year-old female with a history of left squamous cell cancer, left lung adenocarcinoma, right lung adenocarcinoma, left lung non-small cell lung carcinoma, left renal mass clear cell type with left vocal cord paralysis and hoarse voice and cytoxic chemotherapy-induced elevated alkaline phosphatase, completed whole brain radiation due to multiple brain metastases from non-small cell lung adenocarcinoma and left renal cell CA grade 2, stage I status post 5 fractions total completed on 11/26/2019 presents to the Emergency Room today with three episodes of syncope at home. The patient could not remember the details, woke up on the carpet multiple times throughout the day today. She said that she went to the bathroom, yelled out to her , said Im weak, Im weak. She then looked over and noticed that she had been on the ground for some time. No nausea or vomiting, diarrhea, abdominal pain, fevers or chills. The patient denies any bruising. No fevers or chills. Still a little short of breath which is common, not out of the ordinary. Ten pound weight gain and increased appetite recently. Bilateral legs have been swollen, left increasingly so. Usually walks with a cane but currently now requiring a walker due to dyspnea. The patient otherwise denies bright red blood per rectum, melena, black tarry stools. Denies palpitations, lightheadedness prior to the episode. Complains of generalized weakness in the ER. She was found to be orthostatic. CT of the head showed vasogenic edema due to history of metastatic disease. Followup study with IV contrast or MRI is recommended. Chest x-ray was negative for acute cardiopulmonary disease, no consolidation of the right lung with a left pneumonectomy. Venous Dopplers of lower extremity shows a Bakers cyst on the left but no DVT. The patient was noted to be anemic, hemoglobin of 9.1, white count elevated at 112. Per emergency room physician Dr. Callejas, oncologist said that she had recently received some Neulasta. Lactic acid was elevated at 4.6, bicarb of 18. Hospitalist was called to admit for syncopal episode. 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 PAST SURGICAL HISTORY: Lung pneumonectomy, tonsillectomy, tubal ligation, vocal cord injection. ALLERGIES: PENICILLIN, CIPRO, CODEINE. HOME MEDICATIONS: - Acetaminophen 650 mg once daily at bedtime as needed - Bupropion 100 daily - Cetirizine 10 daily - Dexamethasone 16 mg daily - Advair HFA two puffs inhaled twice a day - Lasix 20 daily - Losartan 25 daily - Montelukast 10 daily - Protonix 40 daily - Potassium 10 mEq as needed - Bactrim one tablet three times a week prophylaxis - Calcium with vitamin D one tab daily - Vitamin D 50 mcg daily - Keppra 500 twice a day - Multivitamin one tablet daily REVIEW OF SYSTEMS: Per HPI, 12 point systems otherwise negative. SOCIAL HISTORY: Lives with Mitchell. Phone number [phone]. FAMILY HISTORY: Diabetes in the father. Mother with kidney cancer. PHYSICAL EXAMINATION: Vitals: Temperature 98.3, pulse 98, respiratory rate 21, blood pressure 106/55, 98% on room air. Generally the patient is awake, alert, oriented to person, place, and time, answering questions appropriately. Fluent speech. No expressive aphasia. Face is symmetric. Tongue is midline. No cervical lymphadenopathy or thyromegaly. The patient has a slightly hoarse voice with no stridor. Neck exam: No JVD, thyromegaly. Lungs are clear to auscultation, no wheezing, rales or rhonchi. Heart: S1, S2 sinus rhythm. Abdomen is soft, nontender, nondistended. Positive bowel sounds. Obese abdomen. Extremities: The patient has 1 to 2+ edema, left greater than right. LABORATORY DATA: White count 112.9, hemoglobin 9, hematocrit 27, platelet count 427. Sodium 135, potassium 3.5, chloride 102, bicarb 18, BUN 23, creatinine 0.74, glucose 189, lactic acid 4.6, calcium 9.1, magnesium 2.1, total bilirubin 0.4, direct bilirubin 0.1, AST 13, ALT 39, alkaline phosphatase 93, total CK 33, MB fraction 1.2, troponin less than 0.09, C-reactive protein is pending. Total protein 6.3, albumin 3.4, procalcitonin pending, free T4 0.73, INR 0.97. Urinalysis pending. Blood culture pending. Vascular ultrasound lower extremity: Left Bakers cyst. No DVT. Chest x-ray: Pneumonectomy. No acute cardiopulmonary process, no consolidation of the right lung. CT of the head: Vasogenic edema from metastatic disease. 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 IMPRESSION: * Syncope, recurrent. * Orthostasis. * Leukocytosis, reactive due to recent Neulasta use and chronic Decadron and active malignancy. 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 * Brain metastases. * Hypertensive heart disease. * History of anxiety, depression. * A 2.5 mm aneurysm inferior aspect of the right supraglenoid internal carotid artery. * Cholelithiasis with acquired dilated common bile duct. * Vasogenic brain edema secondary to brain metastases. * History of seizures. * Left Bakers cyst with left lower extremity edema. PLAN: The patient will be admitted to telemetry unit, strict inputs and outputs, obtain MRI of the brain in light of brain metastases for vasogenic edema. May be continued on home dose of Decadron as well as Bactrim for prophylaxis. The patient is currently on chemotherapy. I will obtain records from her oncologist in [place]. A 2D echocardiogram will be obtained. Continue on telemetry monitoring to rule out arrhythmia or bradyarrhythmia, either tachy or bradyarrhythmia as the cause for the patient's syncopal episode. We will discuss with radiation oncologist regarding brain metastases. If she continues to have vasogenic edema despite Decadron, we will defer to medical oncology regarding further management. The patient had received IV fluids for orthostasis, appears to be much more stable now. Hold off on diuretics especially her furosemide. Continue on Keppra for seizure prophylaxis, seizure precautions. The patient does not appear to be an aspiration risk at this time and may resume on a 2 gm sodium diet. Resume all other medications. Once medically stable may be discharged home with physical therapy, outpatient followup with her medical and radiation oncologist. DVT prophylaxis with compression stockings. MTDD
--- NOTE | 2020-03-23 11:45 | IPN ---
DATE: 03/12/2020 SUBJECTIVE: Patient seen and examined at the bedside. Chart has been reviewed. No recurrent episodes of syncope. She complains of slight pain at her foot. No other new complaints. She is anxious to go home. No recurrent syncope episode. Telemetry was unremarkable. No palpitations, lightheadedness or dizziness. She has not been out of bed. MRI of the brain could not be done yesterday as there is a problem with the magnet. PHYSICAL EXAMINATION: VITALS: Temperature 98.3, pulse 76, respiratory rate 16, blood pressure 144/79, 98% on room air. GENERAL: Patient has alopecia from previous chemotherapy and multiple surgeries; all well healed scars. Pupils are round and reactive to light and accommodation. Extraocular muscles are intact. Face is symmetric. Tongue is midline. No pronator drift. No horizontal or vertebral nystagmus. No JVD or use of respiratory accessory muscles. Anicteric, no jaundice. LUNGS: Clear to auscultation. No wheezing or rales. HEART: S1, S2, sinus rhythm. ABDOMEN: Obese, soft, nontender, non-distended. Positive bowel sounds. EXTREMITIES: No cyanosis or clubbing. LABORATORY DATA: White count 70.6, hemoglobin 8.3, hematocrit 25, platelet count 335,000. Sodium 140, potassium 3.2, chloride 110, bicarb 23, BUN 20, creatinine 0.54, glucose 83. IMAGING STUDIES: Reviewed. ASSESSMENT AND PLAN: This is a 69-year-old female with history of left lung adenocarcinoma; status post left lobectomy, follows at [facility], left small- cell carcinoma with high-grade neuroendocrine left lung small-cell carcinoma; status post Carboplatin and etoposide for six cycles, right lung adenocarcinoma, increased lingular nodes consistent with malignancy and increased activity in left lung hilum and left renal mass; status post biopsy right middle lobe and right lower lobe showing right lower lobe invasive adenocarcinoma, minimally invasive adenocarcinoma non-mucinous type, left lung [id number] lung cancer, combined large cell neuroendocrine carcinoma adenocarcinoma with left completion pneumonectomy with intercostal muscle flap. He follows at [facility] with recommendations for adjuvant Carboplatin and etoposide every three weeks for four cycles completed 08/10/2019. Renal cell carcinoma clear cell type on the left. Follows with Dr. Santacruz, showing a stable 5.2 cm left renal mass on CT 08/24/2019. Patient presented to the Emergency Room with three episodes of syncope at home. EKG was unremarkable. She was admitted overnight. CT head showed metastatic lesions with vasogenic edema, no shift. MRI of the brain with and without contrast still pending. Telemetry was unremarkable overnight. She was noted to have elevated white count of 112.9 without a fever; felt to be secondary to recent Neulasta. Discussed with her medical oncologist by with no recommendations for any active treatment. Patient was found to be orthostatic and was given I.V. fluids overnight, and is anxious to go home today, awaiting MRI of the brain with and without contrast, echocardiogram and PT home safety evaluation. IMPRESSION: 1. Syncope. 2. Left lung adenocarcinoma, left small-cell carcinoma. 3. Right lung adenocarcinoma. 4. Left lung [id number] carcinoma. 5. Left renal mass. 6. Hypokalemia. 7. Orthostatic hypotension. PLAN: Patient is continued on supportive care. Await MRI of the brain and echo as well as PT home safety evaluation. Patient is resumed on her chronic immunosuppressive therapy with Bactrim, anti-seizure medication; Keppra 500 mg b.i.d. Await EEG in the morning. Continued on Decadron for vasogenic edema. MTDD
--- NOTE | 2020-03-27 11:07 | DS ---
DATE OF ADMISSION: 03/11/2020 DATE OF DISCHARGE: 03/12/2020 PRIMARY DISCHARGE DIAGNOSES: * Syncope. * Orthostatic hypotension. * Left lung adenocarcinoma status post left lower lobectomy. * Left small cell lung carcinoma, high grade neuroendocrine/left lung small cell status post carboplatin and etoposide. * Right lung adenocarcinoma. * Left renal mass. * Left lung nonsmall cell carcinoma, large cell neuroendocrine carcinoma, adenocarcinoma. * Brain metastases. * Neulasta induced leukocytosis. * Hypokalemia. * Lactic acidosis. * Abnormal TSH. * Left Bakers cyst. DISCHARGE MEDICATIONS: * Acetaminophen 650 at bedtime as needed. * Bupropion 100 daily. * Calcium with vitamin D one tab daily. * Cetirizine 10 daily. * Vitamin D 50 mcg daily. * Fluticasone (Advair) HFA two puffs b.i.d. * Lasix 20 daily as needed. * Levetiracetam 500 b.i.d. * Losartan 25 mg daily. * Montelukast 10 daily. * Multivitamin one cap daily. * Protonix 40 daily. * Potassium 10 mEq daily as needed. * Bactrim prophylaxis three times a week. DISCHARGE INSTRUCTIONS: Follow up with her medical oncologist and primary care physician within five days of hospital discharge to further evaluation chronic edema due to metastatic brain lesions. Patient had completed whole brain radiation November 2019. HOSPITAL COURSE: This 69-year-old female had three syncopal episodes at home lasting for a few minutes. Admitted to the hospital for further evaluation. Patient had no tonic clonic seizure activity and had been compliant with her medications. She was found to be orthostatic on admission and was given 3 liters of IV fluid with resultant improvement and no recurrent syncopal episodes in the hospital. Patient's EKG was sinus rhythm. Echocardiogram was read as ejection fraction 65-70%. No valvular issues. No pericardial effusion. No etiology for patient's syncopal episode. CT of the head showed vasogenic edema consistent with metastatic brain metastases. Chest x-ray had no acute cardiopulmonary process. Left lower extremity edema was evaluated with an ultrasound, negative for DVT with chronic left Bakers cyst. MRI of the brain showed vasogenic edema consistent with metastases. No acute infarct, acute hemorrhage, or midline shift was seen. Patient had resolution of symptoms, ambulated well, and is discharged in stable condition. PHYSICAL EXAMINATION ON DISCHARGE: Temperature 98.4, pulse 91, respiratory rate 20, blood pressure 140/81, 98% on room air. Generally: Patient has alopecia. No JVD. No thyromegaly. Pupils round and reactive. Face is symmetric. Tongue is midline. Speaks in full sentences. No JVD. No cervical lymphadenopathy. Lungs are clear to auscultation. No wheezing, rales, or rhonchi. Heart: S1 and S2, sinus rhythm. Abdomen is obese, soft, nontender, nondistended. Extremities: Chronic left lower extremity edema due to Bakers cyst. LABORATORY DATA ON DISCHARGE: White count 70.6, hemoglobin 8, hematocrit 25, platelet count 335. Sodium 140, potassium 3.2, chloride 110, bicarb 23, BUN 20, creatinine 0.5, glucose 83. Troponin less than 0.02. INR 0.97. Urinalysis negative for leukocyte esterase, 1 WBC, negative bacteria, negative nitrite. Blood culture: No growth after 24 hours. Imaging studies: Chest x-ray consistent with left pneumectomy. No consolidation of the right lung. CT of the head: Vasogenic edema consistent with metastatic disease. Follow up with IV contrast and MRI. Vascular ultrasound left lower extremity: No DVT. Left Bakers cyst. MRI of the brain: No acute intracranial infarct, acute hemorrhage, or midline shift. Vasogenic edema consistent with intracranial metastases. TIME SPENT ON DISCHARGE: Forty minutes. [facility]
== END 2020-03-12 16:12 | disposition home or self-care (01) | DRG 312 ==
LOC: EDBD 11:31 → M ED 11:31 → M ED INP 14:38 → ENRESERV 15:14 → M MSPAV 16:44
PROVIDERS: ADMIT General Practice; ATTEND General Practice
DX: I95.1 Orthostatic hypotension (principal); C79.31 Secondary malignant neoplasm of brain; C34.91 Malignant neoplasm of unspecified part of right bronchus or lung; C34.92 Malignant neoplasm of unspecified part of left bronchus or lung; E87.2 Acidosis; M71.22 Synovial cyst of popliteal space [Baker], left knee; D72.829 Elevated white blood cell count, unspecified; N28.89 Other specified disorders of kidney and ureter; E87.6 Hypokalemia; R53.1 Weakness; I11.9 Hypertensive heart disease without heart failure; F41.9 Anxiety disorder, unspecified; F32.9 Major depressive disorder, single episode, unspecified; Z79.899 Other long term (current) drug therapy; Z90.5 Acquired absence of kidney